=== PATIENT | male | born 1985 | race Two or more races ===

== ENCOUNTER 2019-05-23 12:05 | Emergency (ER) | payer SELFPAY ==
[~2019-05-23] VITALS: Ht 160 cm; Wt 56.7 kg
[2019-05-23] MEDS ORDERED: NKM (12:20)
--- NOTE | 2019-05-23 12:25 | NUR ---
ED Nurse Note: Patient walked into ED c/o nausea and vomiting, patient reports withdrawing from heroin and fentanyl. patient is alert awake ambulatory.
[2019-05-23 12:59] LABS: BASOPHILS % (AUTO) 0.8 % (0.0-2.0); EOSINOPHILS % (AUTO) 0.1 % (0.0-3.0); HEMATOCRIT 43.4 % (42.0-52.0); HEMOGLOBIN 14.1 G/DL (14.2-18.0); LYMPHOCYTES % (AUTO) 15.3 % (20.0-45.0); MEAN CORPUSCULAR VOLUME 77 FL (80-99); MONOCYTES % (AUTO) 6.6 % (1.0-10.0); NEUTROPHILS % (AUTO) 77.3 % (45.0-75.0); PLATELET COUNT 298 K/UL (150-450); RED BLOOD COUNT 5.61 M/UL (4.70-6.10); WHITE BLOOD COUNT 6.1 K/UL (4.8-10.8)
[2019-05-23 13:11] LABS: ALANINE AMINOTRANSFERASE 31 U/L (12-78); ALBUMIN 4.5 G/DL (3.4-5.0); ALKALINE PHOSPHATASE 97 U/L (46-116); ANION GAP 10 mmol/L (5-15); ASPARTATE AMINO TRANSFERASE 29 U/L (15-37); BILIRUBIN,TOTAL 0.9 MG/DL (0.2-1.0); CALCIUM 10.1 MG/DL (8.5-10.1); CARBON DIOXIDE 23 MMOL/L (21-32); CHLORIDE 103 MMOL/L (98-107); CREATINE KINASE 172 U/L (26-308); POTASSIUM 3.9 MMOL/L (3.5-5.1); SODIUM 136 MMOL/L (136-145)
[2019-05-23 13:21] LABS: BLOOD UREA NITROGEN 13 mg/dL (7-18)
[2019-05-23 13:51] VITALS: BP 129/76
--- NOTE | 2019-05-23 14:21 | Emergency Room Report ---
History of Present Illness General Chief Complaint: Vomiting Source: Patient Present Illness HPI 33-year-old male with history of heroine and fentanyl abuse here complaining of multiple bouts of nonbloody emesis and acid reflux x2 days. Patient is here with his roommate reporting that he stopped using both heroin and fentanyl 2 days ago as he is trying to check in to rehab center today. Patient has not been able to take any oral hydration. Feels extremely weak and dizzy. Denies chest pain, shortness of breath, palpitation, urinary symptoms. Patient also reports that he has history of gastritis and has not been able to take his gastritis medication. Denies all other drug use. Denies diarrhea and blood in his stool. Denies suicidal homicidal ideation. Denies LOC and head injury Allergies: Coded Allergies: PENICILLINS (Verified Allergy, Unknown, 05/23/19) Patient History Past Medical History: see triage record Past Surgical History: unable to obtain Pertinent Family History: none Social History: Reports: drug use - Heroin and fentanyl Immunizations: UTD Reviewed Nursing Documentation: PMH: Agreed; PSxH: Agreed Nursing Documentation-PMH Past Medical History: No History, Except For Review of Systems All Other Systems: negative except mentioned in HPI Physical Exam Vital Signs Date Time Temp Pulse Resp B/P (MAP) Pulse Ox O2 Delivery O2 Flow Rate FiO2 05/23/19 12:17 98.4 66 20 133/75 (94) 100 Room Air Sp02 EP Interpretation: normal General Appearance: alert, GCS 15, non-toxic, moderate distress Head: normocephalic, atraumatic Eyes: bilateral eye normal inspection, bilateral eye PERRL ENT: hearing grossly normal, normal pharynx, no angioedema, normal voice Neck: full range of motion, supple/symm/no masses Respiratory: chest non-tender, lungs clear, normal breath sounds, no wheezing, speaking full sentences Cardiovascular #1: regular rate, rhythm, no edema, no murmur Gastrointestinal: normal bowel sounds, non tender, soft, no mass, no organomegaly, no peritonitis, no guarding, no hernia Genitourinary: no CVA tenderness Musculoskeletal: back normal, gait/station normal, normal range of motion, non- tender, calf tenderness Neurologic: alert, oriented x3, responsive, motor strength/tone normal, sensory intact, speech normal Psychiatric: judgement/insight normal, memory normal, mood/affect normal, no suicidal/homicidal ideation Skin: no rash, other - Multiple noninfected track campbell noted on bilateral forearms Lymphatic: no adenopathy Medical Decision Making PA Attestation All diagnoses and treatment plans were reviewed and discussed with my supervising physician Dr. Panda Diagnostic Impression: Primary Impression: Heroin withdrawal ER Course 33-year-old male with history of heroine and fentanyl abuse here complaining of multiple bouts of nonbloody emesis and acid reflux x2 days. Patient is here with his roommate reporting that he stopped using both heroin and fentanyl 2 days ago as he is trying to check in to rehab center today. Patient has not been able to take any oral hydration. Feels extremely weak and dizzy. Denies chest pain, shortness of breath, palpitation, urinary symptoms. Patient also reports that he has history of gastritis and has not been able to take his gastritis medication. Denies all other drug use. Denies diarrhea and blood in his stool. Denies suicidal homicidal ideation. Denies LOC and head injury Ddx considered but are not limited to: generalized anxiety disorder, panic attack, depression with psychotic feature, bipolar disorder, drug overdose, opiate withdrawal Vital signs: are WNL, pt. is afebrile H&PE are most consistent with: Heroin and fentanyl withdrawal ORDERS:, UA, tox screen,, CBC, CMP, EKG, Zofran, pantoprazole ED INTERVENTIONS: NS bolus, Pepcid, Zofran DISCHARGE: At this time pt. is stable for d/c to home. Will provide printed patient care instructions, and any necessary prescriptions. Care plan and follow up instructions have been discussed with the patient prior to discharge. Patient to follow-up with her primary care provider also go to rehab center patient stable time of discharge EKG Diagnostic Results Rate: bradycardiac ST Segments: no acute changes Other Impression No ST changes noted Last Vital Signs Date Time Temp Pulse Resp B/P (MAP) Pulse Ox O2 Delivery O2 Flow Rate FiO2 05/23/19 13:52 55 19 Room Air 05/23/19 13:51 99.8 129/76 100 Disposition: HOME, SELF-CARE Condition: Stable Scripts Pantoprazole (PANTOPRAZOLE) 20 Mg Tablet. 20 MG ORAL EVERY 12 HOURS, #30 TAB 0 Refills Prov: Roberto Herrera 05/23/19 Ondansetron (Zofran) 4 Mg Tablet 4 MG ORAL Q6H PRN for Nausea & Vomiting, #15 TAB Prov: Roberto Herrera 05/23/19 Referrals: NOT CHOSEN IPA/MD,REFERRING (PCP) Patient Instructions: Nausea and Vomiting, Adult, Opioid Withdrawal Additional Instructions: Take medication as directed follow-up with your primary care provider highly advised to go to rehab center having nausea and vomiting and acid reflux is secondary to your heroin and fentanyl withdrawal. Increase oral hydration keep a BRAT diet return to the emergency room if worsening symptoms. Benzodiazepines are not advised as you have a very low heart rate and he will endanger your heart Robreto Herrera May 23, 2019 14:21
[2019-05-23] MEDS ORDERED: PANTOPRAZOLE SO20 MG ORAL (14:22)
[2019-05-23] MEDS ORDERED: ZOFRAN4 M1 ORAL (14:22)
--- NOTE | 2019-05-23 14:43 | NUR ---
ED Nurse Note: ANDRE VELASQUEZ is ok to discharge the patient without urine sample patient voided in the urinal
[2019-05-23 14:44] VITALS: BP 129/76
--- NOTE | 2019-05-23 14:44 | NUR ---
ER DISCHARGE NOTE: Patient is cleared to be discharged per SASCHA VELASQUEZ , pt is aox4, on room air, with stable vital signs. pt was given dc and prescription instructions, pt was able to verbalize understanding, pt id band removed without complications. pt is able to ambulate with steady gait. pt took all belongings.
--- NOTE | 2019-05-23 14:45 | NUR ---
ED Nurse Note: patient's IV site removed without complication.
--- NOTE | 2019-05-27 11:19 | Cardiology Report ---
APPROVED REPORT EKG Measurement Heart [id number] Sinus rhythm with premature supraventricular complexes non conducted Prolonged QT Abnormal ECG
== END 2019-05-23 14:44 | disposition home or self-care (01) ==
LOC: EMR 13:10
DX: F11.23 Opioid dependence with withdrawal (principal); Z88.0 Allergy status to penicillin
CPT/HCPCS: 36415; 80053; 82550; 85025; 93005; 96361; 96374; 96375; 99284; G0480; J2405; S0028; 80329